=== PATIENT | female | born 1995 | race Caucasian/White ===

== ENCOUNTER → 2019-01-27 | Outpatient (CLI) | payer OTHER ==
--- NOTE | 2019-01-29 19:45 | US ---
EXAMINATION TYPE: Ultrasound OB <= 14 week fetus DATE OF EXAM: 01/27/2019 4:42 PM COMPARISON: NONE CLINICAL HISTORY: 23-year-old female Z36 confrim dates. EXAM PERFORMED: Transabdominal (TA) FINDINGS: EXAM MEASUREMENTS: GESTATIONAL AGE / DATING Physician Established: Not yet established Dates by LMP: 11/14/2018 (10 weeks/4 days) EDC: 08/21/2019 Dates by First Scan: No previous this is first scan Dates by Current Scan for: (10 weeks/5 days) EDC: 08/20/2019 MATERNAL ANATOMY Uterus: 11.0 x 6.6 x 8.2 cm, retroverted Right Ovary: 2.3 x 1.3 x 2.3 cm Left Ovary: 2.5 x 1.7 x 3.3 cm Post CDS / Adnexa: wnl Presence of free fluid: none GESTATION / SURVEY CRL: 3.7 cm (10 weeks/5 days) Yolk Sac (normal less than 6mm): not seen Heart Rate: 155 bpm Rhythm: Normal IUP: Viable IUP Date of LMP: 11/14/2018 Viable IUP that correlates with LMP. IMPRESSION: Single live intrauterine with estimated gestational age of 10 weeks 4 days by LMP. Current ultrasound biometry is concordant (10 weeks 5 days). Complete survey recommended at 18-20 weeks.
== END | disposition home or self-care (01) ==
LOC: RADUSWWP 16:20
PROVIDERS: ATTEND Obstetrics & Gynecology
DX: Z36.89 Encounter for other specified antenatal screening (principal); Z3A.10 10 weeks gestation of pregnancy
CPT/HCPCS: 76801

== ENCOUNTER → 2019-03-27 | Outpatient (CLI) | payer OTHER ==
--- NOTE | 2019-03-28 09:46 | US ---
EXAMINATION TYPE: US OB anatomy transabd DATE OF EXAM: 03/27/2019 COMPARISON: NONE HISTORY: 2nd Tri O36.62X0 Anatomy TECHNIQUE: Transabdominal (TA) EXAM MEASUREMENTS: GESTATIONAL AGE / DATING Physician Established: (19 weeks/0 days) EDC: 08/21/2019 Dates by Current Scan for: (19 weeks/3 days) EDC: 08/18/2019 SURVEY IUP: Single PLACENTA: Posterior PREVIA: No previa YOLA: 13.9 cm Normal CERVICAL LENGTH (transabdominal: norm > 3.0cm): 3.5 cm BIOMETRY PRESENTATION: Breech BPD: 4.3 cm 19 weeks / 1 days HC: 16.7 cm 19 weeks / 3 days AC: 13.9 cm 19 weeks / 3 days FL: 3.0 cm 19 weeks / 2 days ESTIMATED WEIGHT IN GRAMS: 284 grams ESTIMATED WEIGHT IN LBS/OZ: 0 lbs. 10 oz. WEIGHT PERCENTAGE BASED ON ESTABLISHED DATE: 63 % HC/AC: 1.2 Normal FL/AC: 22% HEART RATE: 136 bpm RHYTHM: Normal ANATOMY SEEN (within normal limits): * Lateral Vent (< 1 cm) 0.6 cm * Cisterna Magna (< 1.1 cm) 0.5 cm * Nuchal Fold (< 0.6 cm) 4.8 mm * Cerebellum (varies with age) 1.9 cm Choroid Plexus (bilateral) Midline Falx Cavus Septi Pellucidi Four Chamber Heart Outflow tracts: LVOT/RVOT Stomach Situs Nose / Lips Diaphragm Kidneys (bilateral) Bladder Cord Insert Three Vessel Cord Longitudinal Spine Transverse Spine Arms (bilateral) Legs (bilateral) ANATOMY SEEN (does not appear within normal limits): NONE ANATOMY NOT SEEN: All anatomy seen Single live IUP measuring 19 weeks 3 days. Anechoic area seen at fundal tip of placenta = 2.5 x 5.1 x 1.2 cm IMPRESSION: Single live intrauterine with a sonographic age of 19 weeks and 3 days and jeremiah mated date of delivery of 08/18/2019, concordant with menstrual age. Current breech position. Amnioti c fluid index is within normal limits. Anechoic area at the fundal tip of the placenta may relate to a venous luis although surveillance is recommended.
== END | disposition home or self-care (01) ==
LOC: RADUSWWP 16:19
PROVIDERS: ATTEND Obstetrics & Gynecology
DX: O32.1XX0 Maternal care for breech presentation, not applicable or unspecified (principal); Z3A.19 19 weeks gestation of pregnancy
CPT/HCPCS: 76811

== ENCOUNTER → 2019-07-17 | Outpatient (CLI) | payer OTHER ==
--- NOTE | 2019-07-17 15:44 | US ---
EXAMINATION TYPE: US OB >= 14 wk fetus DATE OF EXAM: 07/17/2019 COMPARISON: 03/27/2019 CLINICAL HISTORY: O36.63X0 large for dates, third trimester Pt states measuring large for dates TECHNIQUE: Transabdominal (TA) GESTATIONAL AGE / DATING Physician Established: (35 weeks/0 days) EDC: 08/21/2019 Dates by LMP: (35 weeks/0 days) EDC: 08/21/2019 Dates by First Scan: (35 weeks/3 days) EDC: 08/18/2019 Dates by Current Scan: (37 weeks/3 days) EDC: 08/04/2019 SURVEY IUP: Single PLACENTA: Posterior PREVIA: No Previa YOLA: 14.5 cm Normal CERVICAL LENGTH (transabdominal: norm > 3.0cm): 3.1 cm BIOMETRY PRESENTATION: Vertex BPD: 9.6 cm 39 weeks / 2 days HC: 33.6 cm 38 weeks / 4 days AC: 32.7 cm 36 weeks / 5 days FL: 6.8 cm 35 weeks / 0 days ESTIMATED WEIGHT IN GRAMS: 3003 grams ESTIMATED WEIGHT IN LBS/OZ: 6 lbs. 10 oz. WEIGHT PERCENTAGE BASED ON ESTABLISHED DATES: 89% HC/AC: 1.03 Normal FL/AC: 21 Normal HEART RATE: 128 bpm RHYTHM: Normal Single, viable IUP/ Growth in 89th percentile Note is made anatomy was not performed due to advanced gestation. IMPRESSION: Viable intrauterine 37 weeks 3 days with an EDC of 08/04/2019. The growth is at the 8 9th percentile and should be correlated clinically.
== END | disposition home or self-care (01) ==
LOC: RADUSWWP 15:00
PROVIDERS: ATTEND Obstetrics & Gynecology
DX: O36.63X1 Maternal care for excessive fetal growth, third trimester, fetus 1 (principal); Z3A.37 37 weeks gestation of pregnancy
CPT/HCPCS: 76805

== ENCOUNTER 2019-07-27 09:04 | Outpatient (CLI) | payer OTHER ==
[2019-07-27 09:36] VITALS: RESP 17
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
[2019-07-27 15:59] VITALS: BP 101/57; PULSE 96; TEMP 98.2
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
== END 2019-07-27 17:40 | disposition home or self-care (01) ==
LOC: FBPOP 09:04
PROVIDERS: ATTEND Obstetrics & Gynecology
DX: O71.89 Other specified obstetric trauma (principal); Z3A.36 36 weeks gestation of pregnancy
CPT/HCPCS: 59025; 76805; 99213

== ENCOUNTER 2019-07-27 10:17 | Emergency (ER) | payer OTHER ==
[2019-07-27 10:32] VITALS: BP 105/69; PULSE 90; RESP 20; TEMP 98.6
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
== END 2019-07-27 13:40 | disposition home or self-care (01) ==
LOC: EC 10:17
DX: O9A.213 Injury, poisoning and certain other consequences of external causes complicating pregnancy, third trimester (principal); S16.1XXA Strain of muscle, fascia and tendon at neck level, initial encounter; S29.012A Strain of muscle and tendon of back wall of thorax, initial encounter; S30.811A Abrasion of abdominal wall, initial encounter; S30.810A Abrasion of lower back and pelvis, initial encounter; Z3A.36 36 weeks gestation of pregnancy; V48.5XXA Car driver injured in noncollision transport accident in traffic accident, initial encounter; Y92.410 Unspecified street and highway as the place of occurrence of the external cause; Y93.89 Activity, other specified
CPT/HCPCS: 72072; 72125; 99284

== ENCOUNTER 2019-08-15 06:00 | Inpatient (IN) | payer OTHER ==
[2019-08-15] MEDS ORDERED: TERBUTALINE 1 MG/ML VIAL SQ PRN (06:36)
[2019-08-15] MEDS ORDERED: OXYTOCIN 10 UNIT/ML 1 ML VIAL IM PRN (06:36)
[2019-08-15] MEDS ORDERED: METHYLERGONOVINE 0.2 MG/ML 1 ML AMP IM PRN (06:36)
[2019-08-15] MEDS ORDERED: CARBOPROST TROMETHAMINE 250 MCG/ML 1 ML AMP IM PRN (06:36)
[2019-08-15] MEDS ORDERED: LIDOCAINE 0.5% (PF) 5 MG/ML (50 ML SDV) SQ PRN (06:36)
[2019-08-15] MEDS ORDERED: OXYTOCIN 30 UNITS/500 ML NS 30 UNIT in SALINE 1 500ML.BAG IV SCH (06:45)
[2019-08-15] MEDS: LACTATED RINGERS 1,000 ML IV SCH ×2 (06:59→10:32)
[2019-08-15 07:04] LABS: Basophils # (A) 0.2 k/uL (0-0.2); Basophils % (A) 2 %; Eosinophils # (A) 0.1 k/uL (0-0.7); Eosinophils % (A) 1 %; HCT 32.9 % (34.0-46.0); HGB 10.7 gm/dL (11.4-16.0); Lymphocytes # (A) 2.1 k/uL (1.0-4.8); Lymphocytes % (A) 21 %; MCH 29.7 pg (25.0-35.0); MCHC 32.7 g/dL (31.0-37.0); MCV 90.9 fL (80.0-100.0); Mean Platelet Volume 7.1; Monocytes # (A) 0.6 k/uL (0-1.0); Monocytes % (A) 6 %; Neutrophils # (A) 6.6 k/uL (1.3-7.7); Neutrophils % (A) 67 %; Platelet Count 320 k/uL (150-450); RBC 3.61 m/uL (3.80-5.40); RDW 12.9 % (11.5-15.5); WBC 9.8 k/uL (3.8-10.6)
[2019-08-15] MEDS ORDERED: SIMETHICONE 80 MG CHEWABLE PO PRN (17:10)
[2019-08-15] MEDS ORDERED: LANOLIN CREAM 5 GM TUBE TOPICAL PRN (17:10)
[2019-08-15] MEDS ORDERED: ACETAMINOPHEN TAB 325 MG TAB PO PRN (17:10)
[2019-08-15] MEDS ORDERED: diphenhydrAMINE 25 MG CAP PO PRN (17:10)
[2019-08-15] MEDS ORDERED: ZOLPIDEM 5 MG TAB PO PRN (17:10)
[2019-08-15] MEDS ORDERED: HYDROCORTISONE 2.5% RECTAL CREAM 30 GM TUBE RECTAL PRN (17:10)
[2019-08-15] MEDS ORDERED: BENZOCAINE/MENTHOL SPRAY 1 GM/SPRAY AEROSOL TOPICAL PRN (17:10)
[2019-08-15] MEDS ORDERED: diphenhydrAMINE 50 MG CAP PO PRN (17:10)
[2019-08-15] MEDS ORDERED: WITCH HAZEL 1 EACH MED..PAD TOPICAL PRN (17:10)
[2019-08-15] MEDS ORDERED: diphenhydrAMINE 50 MG/ML 1 ML VIAL IVP PRN ×2 (17:10)
[2019-08-15] MEDS ORDERED: OXYTOCIN 20 UNITS/1000 ML NS 1,000 ML IV SCH (17:15)
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
[2019-08-15] MEDS: IBUPROFEN 600 MG TAB PO PRN (17:51)
[2019-08-16] MEDS: IBUPROFEN 600 MG TAB PO PRN ×2 (01:56→10:47)
[2019-08-16] MEDS: SENNOSIDES-DOCUSATE SODIUM 1 EACH TAB PO SCH ×2 (02:39→12:17)
--- NOTE | 2019-08-16 07:10 | P.DS ---
Providers Date of admission: 08/15/19 06:08 Expected date of discharge: 08/16/19 Attending physician: Mila Dumas Primary care physician: Stated None - Discharge Diagnosis(es) (1) Normal labor Current Visit: Yes Status: Resolved (2) Normal vaginal delivery Current Visit: Yes Status: Acute Hospital Course: Patient presented for induction of labor at 39 weeks and 1 day. She underwent a normal vaginal delivery. course was uncomplicated. She denies nausea, vomiting, chest pain, shortness of breath or any calf pain. She'll be discharged home day #1 in stable condition to follow-up with me in 6 weeks. Plan - Discharge Summary New Discharge Prescriptions: New Ibuprofen [Motrin] 600 mg PO Q6HR PRN #30 tab PRN Reason: Mild Pain Or Fever >= 100.5 No Action Pnv,Calcium 72/Iron/Folic Acid [ Plus Tablet] 1 tab PO DAILY Acetaminophen [Tylenol] 500 mg PO Q4-6H PRN PRN Reason: Pain Discharge Medication List Pnv,Calcium 72/Iron/Folic Acid [ Plus Tablet] 1 tab PO DAILY 07/27/19 [History] Acetaminophen [Tylenol] 500 mg PO Q4-6H PRN 08/15/19 [History] Ibuprofen [Motrin] 600 mg PO Q6HR PRN #30 tab 08/16/19 [Rx] Follow up Appointment(s)/Referral(s): Mila Dumas DO [Doctor of Osteopathic Medicine] - 6 Weeks Discharge Disposition: HOME SELF-CARE
[2019-08-16 07:59] LABS: Basophils # (A) 0.1 k/uL (0-0.2); Basophils % (A) 0 %; Eosinophils # (A) 0.1 k/uL (0-0.7); Eosinophils % (A) 1 %; HCT 25.5 % (34.0-46.0); Hypochromasia Slight; Lymphocytes # (A) 2.1 k/uL (1.0-4.8); Lymphocytes % (A) 15 %; MCH 30.7 pg (25.0-35.0); MCHC 33.3 g/dL (31.0-37.0); MCV 92.3 fL (80.0-100.0); Mean Platelet Volume 6.8; Monocytes % (A) 7 %; Neutrophils # (A) 10.8 k/uL (1.3-7.7); Neutrophils % (A) 76 %; Platelet Count 238 k/uL (150-450); RBC 2.76 m/uL (3.80-5.40); RDW 12.8 % (11.5-15.5); WBC 14.3 k/uL (3.8-10.6)
[2019-08-16 09:02] VITALS: RESP 16
[2019-08-16 09:05] LABS: HGB 8.5 gm/dL (11.4-16.0)
[2019-08-16] MEDS ORDERED: MEASLES-MUMPS-RUBELLA VACC/PF 12,500 UNIT/0.5 ML VIAL SQ ONE (15:04)
[2019-08-16] MEDS ORDERED: DIPH,PERTUS(ACELL)TETVAC-LF 0.5 ML VIAL IM ONE (15:04)
[2019-08-16] MEDS ORDERED: INFLUENZA VACCINE (6 MOS+) 60 MCG/0.5 ML SYRINGE IM ONE (15:05)
[2019-08-16 16:05] VITALS: BP 107/63; PULSE 86; TEMP 98.1
== END 2019-08-16 17:40 | disposition home or self-care (01) | DRG 807 ==
LOC: 4FBP 06:08
PROVIDERS: ADMIT Obstetrics & Gynecology; ATTEND Obstetrics & Gynecology
PROC: 10E0XZZ Delivery of Products of Conception, External Approach (ICD-10-PCS; principal; 2019-08-15)
PROC: 0KQM0ZZ Repair Perineum Muscle, Open Approach (ICD-10-PCS; 2019-08-15)
PROC: 10907ZC Drainage of Amniotic Fluid, Therapeutic from Products of Conception, Via Natural or Artificial Opening (ICD-10-PCS; 2019-08-15)
PROC: 3E033VJ Introduction of Other Hormone into Peripheral Vein, Percutaneous Approach (ICD-10-PCS; 2019-08-15)
PROC: 00HU33Z Insertion of Infusion Device into Spinal Canal, Percutaneous Approach (ICD-10-PCS; 2019-08-15)
PROC: 3E0R3BZ Introduction of Anesthetic Agent into Spinal Canal, Percutaneous Approach (ICD-10-PCS; 2019-08-15)
DX: O69.81X0 Labor and delivery complicated by cord around neck, without compression, not applicable or unspecified (principal); Z37.0 Single live birth; O70.1 Second degree perineal laceration during delivery; Z3A.39 39 weeks gestation of pregnancy; Z82.49 Family history of ischemic heart disease and other diseases of the circulatory system
CPT/HCPCS: 85025; 86850; 86900; 86901; 90686; 90707; 90715